=== PATIENT | female | born 1945 | race Caucasian/White ===

== ENCOUNTER 2022-11-21 19:07 | Inpatient (IN) | payer MEDICARE, BC ==
[~2022-11-21] VITALS: Ht 160 cm; Wt 63.0 kg
[2022-11-21] MEDS ORDERED: FLUO20TA28 PO (19:16)
[2022-11-21] MEDS ORDERED: LIDO30AD10 TD (19:16)
[2022-11-21] MEDS ORDERED: VALA500T34 PO (19:16)
[2022-11-21] MEDS ORDERED: FOLI1TAB94 PO (19:16)
--- NOTE | 2022-11-21 21:00 | NUR ---
MEDICALLY CLEARED BY DR HOUSTON.
[2022-11-21 22:00] LABS: IRON, SERUM 39 ug/dL (50-175)
--- NOTE | 2022-11-21 22:59 | NUR ---
TRANSFERED TO [facility] VIA WHEELCHAIR WITH NO DISTRESS NOTED.
[2022-11-21] MEDS ORDERED: LORAZEPAM 0.5 MG TABLET PO PRN (23:00)
[2022-11-21] MEDS ORDERED: MAGNESIUM HYDROXIDE 30 ML LIQUID UDC PO PRN (23:00)
[2022-11-21] MEDS ORDERED: ACETAMINOPHEN 325 MG TABLET PO PRN (23:00)
[2022-11-21] MEDS ORDERED: MAG HYDROX/AL HYDROX/SIMETH 30 ML LIQUID UDC PO PRN (23:00)
[2022-11-21] MEDS: ZOLPIDEM 5 MG TABLET PO PRN (23:57)
[2022-11-22 00:12] VITALS: BP 149/72
--- NOTE | 2022-11-22 00:51 | NUR ---
GPS: Admitted to unit earlier around 2254 a 77 yr.old female to be under the care of /[employer] [employer]. in stable condition. Pt.is on a 72 hour hold for DTS. [facility] and has not been able to stop crying and has been struggling with thoughts of self harm,per hold. Pt.is A/O x4,pleasant,cooperative but depressed,feels hopeless and is overwhelmed. Denies SI at this time and able to contract for safety. Body check done/personal belongings completed. Unit rules explained. Pt's rights handbook and advisement given. Safety emphasized. Denies pain when asked. Sleeping pill administered per pt's request. Quiet environment provided to facilitate sleep. Will continue to monitor and re-assure prn.
[2022-11-22 07:30] VITALS: BP 129/51
[2022-11-22] MEDS: buPROPion SR 100 MG TABLET.SA PO SCH ×2 (10:52→17:02)
--- NOTE | 2022-11-22 14:43 | NUR ---
Received patient sleeping in her room. Patient is A/O X 3 to person, place. Patient is cooperative, compliant with medications, depressed at times. Patient requires minimal assistance with ADL. Denies suicidal ideations. Patient is tearful when asked what brought her in. Patient states "I get emotional every time I talk about it". Reassurance given. Fall and safety precautions implemented.
--- NOTE | 2022-11-22 15:06 | NUR ---
JONATHAN Initial Discharge Note: Pt currently resides alone at [address] [place] [address] ([phone]). Pt stated she would like to return home. Pt stated she does not have a marine services technician and she does not need one. Pt stated she has great family support and her best friend. Pt has a sister she is close with named, Tamiko ([phone]). JONATHAN will continue to work with pt, family, and MD to ensure a safe and proper discharge plan.
[2022-11-22 16:00] VITALS: BP 119/56
[2022-11-22 20:05] VITALS: BP 106/54
--- NOTE | 2022-11-22 20:37 | NUR ---
GPS: Pt.is depressed,sad but denies wanting to hurt self. Re-assured prn. Cooperative with her plan of care. Safe environment provided. Needs attended.
[2022-11-22] MEDS: ATORVASTATIN 20 MG TABLET PO SCH (21:59)
[2022-11-22] MEDS: TRAZODONE 50 MG TABLET PO SCH (21:59)
[2022-11-22] MEDS: ZOLPIDEM 5 MG TABLET PO PRN (23:08)
[2022-11-23 07:30] VITALS: BP 107/51
[2022-11-23] MEDS: buPROPion SR 100 MG TABLET.SA PO SCH ×2 (08:26→17:25)
[2022-11-23] MEDS: FOLIC ACID 1 MG TABLET PO SCH (08:26)
[2022-11-23] MEDS ORDERED: LIDOCAINE 5% PATCH TD SCH (09:00)
--- NOTE | 2022-11-23 12:27 | NUR ---
JONATHAN Family Contact: SW spoke to pt's son, Gregory ([phone]) who stated that he will provide transportation for the pt's return home upon discharge. Gregory stated pt's best friend, Princess ([phone]) will be living with the pt for a few weeks to help her. Joel stated she does not have a molded goods spot picker at the moment. per Gregory, they will be working on retirement plans for the pt post discharge. Gregory asked for pt's psychiatrist to call him with updates. This SW informed Dr. Muñoz.
[2022-11-23] MEDS: ENSURE ENLIVE (VAN) 240 ML LIQUID PO SCH (14:45)
--- NOTE | 2022-11-23 15:59 | NUR ---
patient is alert and orient x4 agree to sign voluntary , patient is cooperative withdraw stay in TV room most of shift.compliant with all medication,denies any SI/HI, will continue close monitoring.
[2022-11-23 16:00] VITALS: BP 115/43
--- NOTE | 2022-11-23 16:16 | NUR ---
Firearms Report: Transfer Table Operator completed and submitted a [employer] firearms report for 5150 a danger to herself. A copy of report has been placed in patient chart.
[2022-11-23 19:40] VITALS: BP 140/57
--- NOTE | 2022-11-23 20:45 | NUR ---
GPS: Pt.is pleasant upon approach. Cooperative with her plan of care. Denies wanting to hurt self. Less anxious and listens to re-assurance from staff. Safe environment provided. Had an episode of vomitting moderate amounts of undigested food. Will monitor closely.
[2022-11-23] MEDS: ATORVASTATIN 20 MG TABLET PO SCH (21:00)
[2022-11-23] MEDS: TRAZODONE 50 MG TABLET PO SCH (21:00)
[2022-11-24] MEDS: ZOLPIDEM 5 MG TABLET PO PRN (00:14)
[2022-11-24 07:42] VITALS: BP 120/48
[2022-11-24] MEDS: buPROPion SR 100 MG TABLET.SA PO SCH (08:56)
[2022-11-24] MEDS: FOLIC ACID 1 MG TABLET PO SCH (08:56)
[2022-11-24] MEDS: ENSURE ENLIVE (VAN) 240 ML LIQUID PO SCH (08:56)
--- NOTE | 2022-11-24 10:15 | NUR ---
GPS: Nursing Notes: Discharge Notes: Patient is awake and responding to her name, cooperative with nursing care, compliant with her medications, following staff directions, A/Ox4, denies SI/HI, denies AH/VH, denies pain or discomfort, denies SOB, discharge AMA to home at [address] [place] [phone] . Patient's son - Gregory informed of discharge by web content & social media manager. Picked up by her son - Gregory, took all her belongings and valuable with her, instructions and prescription given to patient, escorted on w/c with staff to vehicle.
== END 2022-11-24 09:40 | disposition left against medical advice (07) | DRG 885 ==
LOC: ER 19:07 → GPS 22:43
PROVIDERS: ADMIT Psychiatry & Neurology Psychiatry; ATTEND Internal Medicine
DX: F33.2 Major depressive disorder, recurrent severe without psychotic features (principal); N18.9 Chronic kidney disease, unspecified; R45.851 Suicidal ideations; E78.5 Hyperlipidemia, unspecified; D64.9 Anemia, unspecified; M81.0 Age-related osteoporosis without current pathological fracture; Z90.49 Acquired absence of other specified parts of digestive tract; D47.2 Monoclonal gammopathy; Z91.81 History of falling; Z87.820 Personal history of traumatic brain injury
CPT/HCPCS: 36415; 70030-TC; 83550; A4663